=== PATIENT | female | born 1955 | race Caucasian/White ===

== ENCOUNTER → 2019-02-08 | Outpatient (CLI) | payer MEDICARE, OTHER ==
--- NOTE | 2019-02-09 06:40 | XR ---
EXAMINATION TYPE: XR tibia fibula RT DATE OF EXAM: 02/08/2019 CLINICAL HISTORY: Laceration injury with pain TECHNIQUE: Two views of the right leg are obtained. COMPARISON: None. FINDINGS: There is no acute fracture or dislocation seen in the right tibia or fibula. The right kn ee and ankle joints appear within normal limits. The overlying soft tissue appears unremarkable with out suspicious radiodense foreign body seen. Overlying sock material is present. IMPRESSION: There is no acute fracture or dislocation seen in the right tibia or fibula.
== END | disposition home or self-care (01) ==
LOC: RADXRMAIN 15:47
PROVIDERS: ATTEND Family Medicine
DX: M79.604 Pain in right leg (principal); S81.801D Unspecified open wound, right lower leg, subsequent encounter